=== PATIENT | male | born 1975 | race Caucasian/White ===

== ENCOUNTER 2020-06-30 17:56 | Emergency (ER) | payer OTHER ==
[~2020-06-30] VITALS: Ht 180.3 cm; Wt 95.3 kg
[2020-06-30 17:57] VITALS: BP 179/109
--- NOTE | 2020-06-30 18:00 | NUR ---
44/M jason NIEVES for medical clearance. Pt was brought in from [facility] for elevated blood pressure. Pt states "my blood pressure is high for no reason." Pt denies any medical hx. Denies taking any medications. Denies pain. AOX4. Denies headache. Denies chest pain. Pt has no complaint at this time.
[2020-06-30] MEDS ORDERED: ENALAPRIL 10 MG TAB PO ONE (18:05)
[2020-06-30] MEDS ORDERED: METOPROLOL 50 MG TAB PO ONE (18:50)
[2020-06-30 19:33] VITALS: BP 165/106
--- NOTE | 2020-06-30 19:34 | NUR ---
PATIENT [facility] POLICE DEPT. PATIENT EXAMINED BY DR. HERRERA. PATIENT MEDICALLY CLEARED AND RELEASED IN CUSTODY IN STABLE CONDITION. ORIGINAL PRE-BOOK FORM GIVEN TO OFFICER BENNIE.
== END 2020-06-30 19:34 ==
LOC: MED 17:56
DX: I10 Essential (primary) hypertension (principal)
CPT/HCPCS: 99283

== ENCOUNTER 2020-07-19 16:14 | Emergency (ER) | payer OTHER ==
[~2020-07-19] VITALS: Ht 180.3 cm; Wt 95.3 kg
[2020-07-19 16:20] VITALS: BP 176/113
[2020-07-19] MEDS ORDERED: BACITRACIN OINT 500 UNITS/GM PKT TP ONE ×2 (16:40→16:42)
[2020-07-19] MEDS ORDERED: CEPH-588 PO (16:41)
[2020-07-19] MEDS ORDERED: BACI1PAC6 TP (16:41)
[2020-07-19 17:08] VITALS: BP 165/102
== END 2020-07-19 17:08 | disposition home or self-care (01) ==
LOC: MED 16:14
DX: L03.116 Cellulitis of left lower limb (principal); I10 Essential (primary) hypertension; Z79.899 Other long term (current) drug therapy
CPT/HCPCS: 90471; 90715; 99283

== ENCOUNTER 2023-09-01 00:26 | Emergency (ER) | payer SELFPAY ==
[~2023-09-01] VITALS: Ht 180.3 cm; Wt 98.0 kg
[~2023-09-01 00:26] MED LIST: BACI-418 TP; CEPH-588 PO
[2023-09-01 00:29] VITALS: BP 162/103; PULSE 92; RESP 16; TEMP 97.4; O2SAT 97
[2023-09-01 01:04] VITALS: BP 150/89; PULSE 80; RESP 15; TEMP 97.7; O2SAT 98
[2023-09-01] MEDS: BACITRACIN OINT 500 UNITS/GM PKT TP ONE (01:08)
== END 2023-09-01 01:04 | disposition home or self-care (01) ==
LOC: MED 00:26
DX: S01.112A Laceration without foreign body of left eyelid and periocular area, initial encounter (principal); Z79.899 Other long term (current) drug therapy; Y04.8XXA Assault by other bodily force, initial encounter; Y93.89 Activity, other specified; Y92.89 Other specified places as the place of occurrence of the external cause; Y99.8 Other external cause status
CPT/HCPCS: 99282

== ENCOUNTER 2023-09-04 13:25 | Emergency (ER) | payer MEDICAID ==
[~2023-09-04] VITALS: Ht 180.3 cm; Wt 97.5 kg
[2023-09-04 13:34] VITALS: BP 165/107; PULSE 111; RESP 15; TEMP 97.3; O2SAT 98
[2023-09-04 14:32] VITALS: BP 131/64; PULSE 87; RESP 19; TEMP 98.2; O2SAT 98
== END 2023-09-04 14:23 | disposition home or self-care (01) ==
LOC: MED 13:29
DX: T81.33XA Disruption of traumatic injury wound repair, initial encounter (principal); I10 Essential (primary) hypertension; Z79.899 Other long term (current) drug therapy
CPT/HCPCS: 99281

== ENCOUNTER 2023-09-10 15:16 | Emergency (ER) | payer MEDICAID | END 2023-09-10 15:30 | disposition left against medical advice (07) | LOC: MED 15:16 | DX: Z53.21 Procedure and treatment not carried out due to patient leaving prior to being seen by health care provider (principal) ==

== ENCOUNTER 2023-09-11 19:08 | Emergency (ER) | payer MEDICAID ==
[~2023-09-11] VITALS: Ht 180.3 cm; Wt 98.0 kg
[2023-09-11 19:25] VITALS: BP 155/109; PULSE 98; RESP 18; TEMP 98.3; O2SAT 98
== END 2023-09-11 19:45 | disposition home or self-care (01) ==
LOC: MED 19:08
DX: S01.112D Laceration without foreign body of left eyelid and periocular area, subsequent encounter (principal); Z48.00 Encounter for change or removal of nonsurgical wound dressing; I10 Essential (primary) hypertension; Z79.2 Long term (current) use of antibiotics; X58.XXXD Exposure to other specified factors, subsequent encounter
CPT/HCPCS: 99281